=== PATIENT | female | born 1990 | race American Indian/Alaskan Native ===

== ENCOUNTER 2017-10-12 10:38 | Emergency (ER) | payer OTHER ==
--- NOTE | 2017-10-12 10:55 | Emergency Department Report ---
Chief Complaint: Abdominal Pain Stated Complaint: HAVING MISCARRIAGE Time Seen by Provider: 10/12/17 10:51 - HPI History of Present Illness: This is a 27-year-old 002 who presents to ED complaining of vaginal bleeding and abdominal pain 2 days. Patient states yesterday while she was at work she decided to x-ray some intermittent lower abdominal cramping with some light vaginal bleeding. Patient states this morning bleeding began heavier with blood clots. Patient states she took a home test couple weeks ago that was positive and has not been to see her [employer] this . She reports last menstrual period as 08/01/2017 She denies fevers/chills/nausea vomiting - ROS Review of Systems: As noted in HPI - Exam Vital Signs: Vital Signs 10/12/17 10:40 Temperature 98.4 F Pulse Rate 83 Respiratory 16 Rate Blood Pressure 131/83 O2 Sat by Pulse 100 Oximetry Physical Exam: GENERAL: Alert and oriented x3, no apparent distress, Normal Gait, atraumatic. ABDOMEN: No organomegaly was noted,Positive bowel sounds, soft, and non- distended. . Nontender to palpation on all Quadrants, NO CVA tenderness. SKIN: Warm and dry, No lesions, No ulceration or induration present. MSE screening note: Focused history and physical exam performed. Due to findings the following was ordered: ED Medical Decision Making - Medical Decision Making 27-year-old female stable in no acute distress Vaginal bleeding protocol ordered. Ultrasound ordered Patient to be seen by the physician. ED Disposition for MSE Condition: Stable Instructions: Abdominal Pain (ED)
[2017-10-12 11:59] LABS: Basophils % (Auto) 0.6 % (0.0-1.8); Eosinophils % (Auto) 3.7 % (0.0-4.3); Hematocrit 41.3 % (30.3-42.9); Hemoglobin 13.9 gm/dl (10.1-14.3); Mean Corpuscular HGB Conc 34 % (30-34); Mean Corpuscular Hemoglobin 29 pg (28-32); Mean Corpuscular Volume 87 fl (79-97); Platelet Count 283 K/mm3 (140-440); Red Blood Count 4.76 M/mm3 (3.65-5.03); Red Cell Distribution Width 13.3 % (13.2-15.2); White Blood Count 9.1 K/mm3 (4.5-11.0)
[2017-10-12 12:48] LABS: Bilirubin,Urine NEG (Negative); Blood,Urine LG (Negative); Ketones,Urine NEG (Negative); Leukocyte Esterase,Urine NEG (Negative); Mucus,Urine FEW /HPF; Nitrite,Urine NEG (Negative); Protein,Urine <15 mg/dL mg/dL (Negative); Urobilinogen,Urine < 2.0 mg/dL (<2.0)
[2017-10-12] MEDS ORDERED: TYLENOL PO ONE (12:59)
--- NOTE | 2017-10-12 13:07 | Emergency Department Report ---
HPI - General Chief Complaint: Abdominal Pain Time Seen by Provider: 10/12/17 10:51 - HPI HPI: This is a 27-year-old female presents to the emergency room from home with a complaint of a two-day history of some left lower abdominal pain and some vaginal bleeding while . The patient believes she is about 2 months as her last menstrual cycle was 08/01/17 and she had a home positive test. With this she would be with 2 live children. She has not taken anything for her symptoms prior to presentation. She does not have any past medical history. She does not have an INFECTION PREVENTION COORDINATOR. She denies any fever, nausea, vomiting, diaphoresis, chest pain, shortness of breath. No recent travel or sick contacts at home. ED Past Medical Hx - Past Medical History Previous Medical History?: No Hx Hypertension: No Hx CVA: No Hx Heart Attack/AMI: No Hx Congestive Heart Failure: No Hx Diabetes: No Hx Deep Vein Thrombosis: No Hx Pulmonary Embolism: No Hx GERD: No Hx Liver Disease: No Hx Renal Disease: No Hx Sickle Cell Disease: No Hx Arthritis: No Hx Headaches / Migraines: No Hx Seizures: No Hx Kidney Stones: No Hx Psychiatric Treatment: No Hx Asthma: No Hx COPD: No Hx Tuberculosis: No Hx Dementia: No Hx HIV: No - Surgical History Past Surgical History?: Yes Hx Coronary Stent: No Hx Pacemaker: No Hx Internal Defibrillator: No Hx Cholecystectomy: No Hx Appendectomy: No Hx Breast Surgery: No Additional Surgical History: 2 c-sections - Social History Smoking Status: Current Every Day Smoker Substance Use Type: Alcohol - Medications Home Medications: Home Medications Medication Instructions Recorded Confirmed Last Taken Type Cyclobenzaprine [Flexeril 10mg] 10 mg PO TID PRN #30 tablet 05/20/14 Unknown Rx HYDROcodone/APAP 5-325 [[place] 1 each PO Q6HR PRN #12 tablet 05/20/14 Unknown Rx 5-325 mg TAB] Ibuprofen [Motrin] 800 mg PO TID #20 tablet 05/20/14 Unknown Rx Penicillin Vk [Veetids TAB] 500 mg PO BID #14 tablet 05/20/14 Unknown Rx HYDROcodone/APAP 5-325 [[place] 1 each PO Q6HR PRN #8 tablet 10/12/17 Unknown Rx 5/325] ED Review of Systems ROS: Stated complaint: HAVING MISCARRIAGE Other details as noted in HPI Comment: All other systems reviewed and negative Constitutional: denies: chills, fever Eyes: denies: eye pain, eye discharge, vision change ENT: denies: ear pain, throat pain Respiratory: denies: cough, shortness of breath, wheezing Cardiovascular: denies: chest pain, palpitations Gastrointestinal: abdominal pain. denies: vomiting Genitourinary: other (vaginal bleeding). denies: dysuria Musculoskeletal: denies: back pain, joint swelling, arthralgia Skin: denies: rash, lesions Neurological: denies: headache, weakness, paresthesias Physical Exam - Physical Exam Vital Signs: Vital Signs 10/12/17 10/12/17 10/12/17 10:40 11:50 11:51 Temperature 98.4 F 98.7 F Pulse Rate 83 68 Respiratory 16 20 20 Rate Blood Pressure 131/83 Blood Pressure 137/75 [Right] O2 Sat by Pulse 100 97 97 Oximetry Physical Exam: GENERAL: The patient is well-developed well-nourished. HENT: Normocephalic. Atraumatic. Patient has moist mucous membranes. EYES: Extraocular motions are intact. Pupils equal reactive to light bilaterally. NECK: Supple. Trachea is midline. CHEST/LUNGS: Clear to auscultation. There is no respiratory distress noted. HEART/CARDIOVASCULAR: Regular. There is no tachycardia. There is no gallop rub or murmur. ABDOMEN: Abdomen is soft. Unable to reproduce patient's lower abdominal tenderness to palpation. No guarding or rebound tenderness. Patient has normal bowel sounds. There is no abdominal distention. SKIN: Skin is warm and dry. NEURO: The patient is awake, alert, and oriented. The patient is cooperative. The patient has no focal neurologic deficits. The patient has normal speech. MUSCULOSKELETAL: There is no tenderness or deformity. There is no limitation range of motion. There is no evidence of acute injury. ED Course Vital Signs 10/12/17 10/12/17 10/12/17 10:40 11:50 11:51 Temperature 98.4 F 98.7 F Pulse Rate 83 68 Respiratory 16 20 20 Rate Blood Pressure 131/83 Blood Pressure 137/75 [Right] O2 Sat by Pulse 100 97 97 Oximetry - Consultations Consultation #1: I had spoken to the INFECTION PREVENTION COORDINATOR on-call, Dr. Landon, who feels that this is consistent with a miscarriage and recommends a repeat beta hCG in 2-3 days. 10/15/17 20:22 ED Medical Decision Making - Lab Data Result diagrams: 10/12/17 11:21 10/12/17 11:21 - Radiology Data Radiology results: report reviewed OB ultrasound: Vaginal bleeding. Endovaginal and transabdominal imaging demonstrates an anteverted uterus measuring approximately 4.6 x 5.1 x 10.7 cm. The endometrial thickness is approximately 11.0 mm. No endometrial fluid or sac. The myometrium is homogeneous. The left ovary measures 2.4 cm with a central 12 mm thick wall cystic appearing mass. The right ovary measures 3 cm in size and is echogenically unremarkable. No free fluid. Impression: No intra-or extrauterine identified. Cystic appearing left ovarian mass. Transcribed By: TISHA Dictated By: ORIANA LIMA MD Electronically Authenticated By: ORIANA LIMA MD Signed Date/Time: 10/12/17 1415 - Medical Decision Making 27-year-old female presents to the emergency department with the complaint of some left-sided abdominal pain that has been going on intermittently along with some vaginal bleeding. She believes she is about 8 weeks . She has a beta hCG of 9600. Ultrasound shows no intraoral or extrauterine seen. I spoke to the INFECTION PREVENTION COORDINATOR on-call, Dr. Landon, who agrees that this sounds like a miscarriage and recommends a follow-up hCG in a few days. All this information was given to the patient. Discharge instructions were given to the patient while in the emergency department all questions have been answered. Respiratory labs are unremarkable. Vital signs stable throughout her ED course. With the negative ultrasound, it appears unlikely for some type of atypical ectopic within the retroperitoneal abdomen and no CT scan will be done at this time. However if the repeat hormone level is not decreasing or if it is increasing, the patient's pain worsens, a CT scan may need to be done at that time. Critical Care Time: No Critical care attestation.: If time is entered above; I have spent that time in minutes in the direct care of this critically ill patient, excluding procedure time. ED Disposition Clinical Impression: Miscarriage, Vaginal bleeding Disposition: DC- TO HOME OR SELFCARE Is pt being admited?: No Condition: Stable Instructions: Spontaneous Miscarriage (ED), Abdominal Pain (ED) Additional Instructions: Please follow up with an INFECTION PREVENTION COORDINATOR or to the emergency department in about 2 days for a repeat hormone level. Return to the emergency department sooner with any worsening of her symptoms or any acute distress. Prescriptions: HYDROcodone/APAP 5-325 [[place] 5/325] 1 each PO Q6HR PRN #8 tablet PRN Reason: Pain Referrals: YAZMIN LANDON MD [Staff Physician] - 2-3 Days Forms: Work/School Release Form(ED) Time of Disposition: 16:17
[2017-10-12 13:33] LABS: Alanine Aminotransferase 15 units/L (7-56); Albumin 3.7 g/dL (3.9-5); Albumin/Globulin Ratio 1.2 %; Alkaline Phosphatase 73 units/L (35-129); Anion Gap 17 mmol/L; BUN/Creatinine Ratio 18; Blood Urea Nitrogen 9 mg/dL (7-17); Calcium 8.7 mg/dL (8.4-10.2); Carbon Dioxide 23 mmol/L (22-30); Chloride 100.1 mmol/L (98-107); Glucose 91 mg/dL (65-100); Potassium 4.2 mmol/L (3.6-5.0); Sodium 136 mmol/L (137-145); Total Protein 6.7 g/dL (6.3-8.2)
--- NOTE | 2017-10-12 14:31 | Ultrasound Report ---
OB ultrasound: Vaginal bleeding. Endovaginal and transabdominal imaging demonstrates an anteverted uterus measuring approximately 4.6 x 5.1 x 10.7 cm. The endometrial thickness is approximately 11.0 mm. No endometrial fluid or sac. The myometrium is homogeneous. The left ovary measures 2.4 cm with a central 12 mm thick wall cystic appearing mass. The right ovary measures 3 cm in size and is echogenically unremarkable. No free fluid. Impression: No intra-or extrauterine identified. Cystic appearing left ovarian mass.
[2017-10-12 17:24] VITALS: BP 135/77
== END 2017-10-12 17:20 | disposition home or self-care (01) ==
LOC: ED 10:38
DX: O03.9 Complete or unspecified spontaneous abortion without complication (principal); O20.9 Hemorrhage in early pregnancy, unspecified; O99.331 Smoking (tobacco) complicating pregnancy, first trimester; Z3A.08 8 weeks gestation of pregnancy
CPT/HCPCS: 36415; 76801; 76817; 80053; 81001; 84702; 84703; 85025; 86850; 86900; 86901